=== PATIENT | female | born 1955 | race Caucasian/White ===

== ENCOUNTER → 2019-11-22 09:49 | Outpatient (CLI) | payer MEDICARE, SELFPAY ==
[2019-11-22 10:32] LABS: Add Manual Diff / Slide Review NO; Basophils Absolute Auto 100 /uL (0-100); Basophils Percent Auto 1.4 % (0-2); Eosinophils Absolute Auto 500 /uL (0-450); Eosinophils Percent Auto 7.1 % (2-4); Hematocrit 40.3 % (36-46); Hemoglobin 13.6 g/dL (12.0-16.0); Lymphocytes Absolute Auto 1600 /uL (1100-4500); Lymphocytes Percent Auto 22.1 % (25-40); Mean Corpuscular HGB Conc 33.7 % (30-36); Mean Corpuscular Hemoglobin 30.7 PG (26-34); Mean Corpuscular Volume 91.1 fL (80-100); Monocytes Absolute Auto 500 /uL (0-900); Monocytes Percent Auto 6.7 % (3-14); Neutrophils Absolute Auto 4600 /uL (1500-7000); Neutrophils Percent Auto 62.7 % (50-75); Platelet Count 272 X10^3/uL (150-400); Red Blood Cell Count 4.43 X10^6/uL (4.0-5.2); Red Cell Distribution Width 13.7 % (11.6-14.8); White Blood Cell Count 7.4 X10^3/uL (4.5-11.0)
[2019-11-22 10:47] LABS: Lithium 0.6 mmol/L (0.6-1.2)
[2019-11-22 10:48] LABS: Alanine Aminotransferase 18 IU/L (<35); Albumin 4.2 g/dL (3.5-5.0); Albumin Globulin Ratio 1.4 (1.0-2.8); Alkaline Phosphatase 101 U/L (38-126); Aspartate Aminotransferase 22 IU/L (14-36); BUN Creatinine Ratio 17.7 (6-22); Bilirubin Total 0.6 mg/dL (0.2-1.3); Blood Urea Nitrogen 14 mg/dL (7-17); Calcium 10.6 mg/dL (8.4-10.2); Carbon Dioxide 26 mmol/L (22-32); Chloride 109 mmol/L (98-107); Cholesterol 194 mg/dL (140-199); Estimated Glomerular Filt Rate > 60.0 mL/min (>60); Globulin 2.9 g/dL (1.7-4.1); Glucose 99 mg/dL (80-110); HDL Cholesterol 41 mg/dL (40-60); HEMOLYSIS < 15 (0-50); LDL Cholesterol Calculated 100 mg/dL (<100); Potassium 4.8 mmol/L (3.4-5.1); Sodium 140 mmol/L (137-145); Total Protein 7.1 g/dL (6.3-8.2); Triglycerides 264 mg/dL (35-150)
[2019-11-22 11:04] LABS: Free T3, Triiodothyronine Free 2.86 pg/mL (2.77-5.27); Free T4, Direct Thyroxine 1.01 ng/dL (0.78-2.19)
== END ==
PROVIDERS: Family Provider Family Medicine; PCP Nurse Practitioner; Referring Provider Nurse Practitioner; Visit Provider Nurse Practitioner
DX: Z00.00 Encounter for general adult medical examination without abnormal findings (principal); E03.9 Hypothyroidism, unspecified; R42 Dizziness and giddiness; Z79.899 Other long term (current) drug therapy
CPT/HCPCS: 36415; 80053; 80061; 80178; 84439; 84443; 84481; 85025

== ENCOUNTER → 2020-07-10 16:37 | Outpatient (CLI) | payer MEDICARE, SELFPAY ==
[2020-07-10 17:51] LABS: Appearance Urine UA CLEAR; Bilirubin Urine UA NEGATIVE (NEGATIVE); Color Urine UA YELLOW; Glucose Urine UA NEGATIVE (Negative); Ketones Urine UA NEGATIVE (NEGATIVE); Leukocyte Esterase Urine UA NEGATIVE (NEGATIVE); Nitrite Urine UA NEGATIVE (Negative); Occult Blood Urine UA TRACE-LYSED (Negative); Protein Urine UA NEGATIVE (Negative); Urobilinogen Urine UA 0.2 E.U./dL (0.2)
[2020-07-10 18:41] LABS: Add Manual Diff / Slide Review NO; Basophils Absolute Auto 100 /uL (0-100); Eosinophils Absolute Auto 600 /uL (0-450); Eosinophils Percent Auto 7.9 % (2-4); Hematocrit 40.2 % (36-46); Hemoglobin 13.3 g/dL (12.0-16.0); Lymphocytes Absolute Auto 2200 /uL (1100-4500); Lymphocytes Percent Auto 27.4 % (25-40); Mean Corpuscular Hemoglobin 29.7 PG (26-34); Mean Corpuscular Volume 89.9 fL (80-100); Monocytes Absolute Auto 600 /uL (0-900); Monocytes Percent Auto 7.8 % (3-14); Neutrophils Absolute Auto 4500 /uL (1500-7000); Neutrophils Percent Auto 55.9 % (50-75); Platelet Count 294 X10^3/uL (150-400); Red Blood Cell Count 4.47 X10^6/uL (4.0-5.2); Red Cell Distribution Width 13.5 % (11.6-14.8); White Blood Cell Count 8.1 X10^3/uL (4.5-11.0)
[2020-07-10 19:04] LABS: Alanine Aminotransferase 31 IU/L (<35); Albumin 4.2 g/dL (3.5-5.0); Albumin Globulin Ratio 1.6 (1.0-2.8); Alkaline Phosphatase 100 U/L (38-126); Aspartate Aminotransferase 28 IU/L (14-36); BUN Creatinine Ratio 20.5 (6-22); Bilirubin Total 0.3 mg/dL (0.2-1.3); Blood Urea Nitrogen 16 mg/dL (7-17); Calcium 10.2 mg/dL (8.4-10.2); Carbon Dioxide 27 mmol/L (22-32); Chloride 108 mmol/L (98-107); Estimated Glomerular Filt Rate > 60.0 mL/min (>60); Globulin 2.7 g/dL (1.7-4.1); Glucose 88 mg/dL (80-110); HEMOLYSIS < 15 (0-50); Lipase 80 U/L (23-300); Potassium 4.4 mmol/L (3.4-5.1); Sodium 140 mmol/L (137-145); Total Protein 6.9 g/dL (6.3-8.2)
== END ==
PROVIDERS: Family Provider Family Medicine; PCP Registered Nurse; Referring Provider Registered Nurse; Visit Provider Registered Nurse
DX: R10.9 Unspecified abdominal pain (principal); R53.83 Other fatigue; M54.5 Low back pain
CPT/HCPCS: 36415; 80053; 81003; 83690; 85025

== ENCOUNTER → 2020-07-24 11:18 | Outpatient (CLI) | payer MEDICARE, SELFPAY ==
--- NOTE | 2020-07-24 12:38 | DI.CT.S_ITS ---
PROCEDURE: CT ABDOMEN W CON INDICATIONS: abdominal pain TECHNIQUE: After the administration of oral and intravenous contrast, 5 mm thick sections acquired from the diaphragms to the iliac crests. 5 mm thick coronal and sagittal reformats were acquired. For radiation dose reduction, the following was used: automated exposure control, adjustment of mA and/or kV according to patient size. COMPARISON: [facility], [place], ABDOMEN COMPLETE, 10/14/2011, 8:48. [facility], [place], ABDOMEN/PELVIS WITH CONTRAST, 09/18/2011, 8:56. FINDINGS: Image quality: Excellent. Lung bases: Lingular scars and atelectasis. Heart size is mildly increased. Solid organs: Hepatic steatosis. Liver is normal in size and enhancement. Gallbladder is surgically absent. Common bile duct is prominent measuring 8 mm. There is mild intrahepatic biliary dilation. Pancreas enhances normally. Spleen is normal in size. There is a 1.4 x 1.8 cm they low-density mass in spleen. Previously, it measures 3.1 x 3.2 cm on 09/18/2011. No adrenal nodules. Kidneys are normal in size, without hydronephrosis. Peritoneum and bowel: Contrast enhanced bowel loops appear normal in caliber. No free fluid or air. Nodes and vessels: No retroperitoneal or mesenteric adenopathy by size criteria. Aorta and inferior vena cava are normal in size. Bones: No suspicious bony lesions. No vertebral body compression fractures. Moderate degenerative disease at L3-L4. Miscellaneous: There is a tiny fat containing umbilical hernia. Fatty replacement of the right rectus abdominis muscle. IMPRESSION: 1. A tiny fat containing umbilical hernia. 2. Mild intrahepatic and extrahepatic biliary dilation may be sequelae of cholecystectomy. 3. Hepatic steatosis. 4. A 1.4 x 1.8 cm low-density mass in spleen, decreased in size compared to 09/18/2011. It is most likely a hemangioma. The difference in measurement between the current scan and the last exam may be due to variation in timing of contrast enhancement. Dictated by: Damian Griffin M.D. on 07/24/2020 at 15:15 Approved by: Damian Griffin M.D. on 07/24/2020 at 15:25
== END ==
PROVIDERS: Family Provider Family Medicine; PCP Nurse Practitioner; Referring Provider Nurse Practitioner; Visit Provider Registered Nurse
DX: R10.9 Unspecified abdominal pain (principal); K76.0 Fatty (change of) liver, not elsewhere classified; R16.1 Splenomegaly, not elsewhere classified
CPT/HCPCS: 74160; Q9967

== ENCOUNTER → 2020-11-28 09:50 | Outpatient (CLI) | payer MEDICARE, SELFPAY ==
[2020-11-28 10:51] LABS: Alanine Aminotransferase 23 IU/L (<35); Albumin Globulin Ratio 1.2 (1.0-2.8); Alkaline Phosphatase 99 U/L (38-126); Aspartate Aminotransferase 27 IU/L (14-36); Bilirubin Total 0.4 mg/dL (0.2-1.3); Blood Urea Nitrogen 15 mg/dL (7-17); Calcium 10.2 mg/dL (8.4-10.2); Carbon Dioxide 24 mmol/L (22-32); Chloride 111 mmol/L (98-107); Estimated Glomerular Filt Rate > 60.0 mL/min (>60); Globulin 3.3 g/dL (1.7-4.1); Glucose 103 mg/dL (80-110); HEMOLYSIS < 15 (0-50); Potassium 4.8 mmol/L (3.4-5.1); Sodium 140 mmol/L (137-145); Total Protein 7.3 g/dL (6.3-8.2)
[2020-11-28 10:56] LABS: Lithium 0.9 mmol/L (0.6-1.2)
[2020-11-28 11:23] LABS: Thyroid Stimulating Hormone 0.043 uIU/mL (0.47-4.68)
== END ==
PROVIDERS: Family Provider Family Medicine; PCP Nurse Practitioner; Referring Provider Nurse Practitioner; Visit Provider Nurse Practitioner
DX: E03.8 Other specified hypothyroidism (principal); E06.3 Autoimmune thyroiditis; Z79.899 Other long term (current) drug therapy
CPT/HCPCS: 36415; 80053; 80178; 84443

== ENCOUNTER → 2021-05-17 09:48 | Outpatient (CLI) | payer MEDICARE, SELFPAY ==
[2021-05-17 13:30] LABS: Free T3, Triiodothyronine Free 3.35 pg/mL (2.77-5.27); Free T4, Direct Thyroxine 1.12 ng/dL (0.78-2.19)
[2021-05-17 13:44] LABS: Thyroid Stimulating Hormone 0.152 uIU/mL (0.47-4.68)
== END ==
PROVIDERS: Family Provider Family Medicine; PCP Nurse Practitioner; Referring Provider Nurse Practitioner; Visit Provider Nurse Practitioner
DX: M85.88 Other specified disorders of bone density and structure, other site (principal); Z78.0 Asymptomatic menopausal state; E06.3 Autoimmune thyroiditis; E03.8 Other specified hypothyroidism
CPT/HCPCS: 36415; 77080; 84439; 84443; 84481

== ENCOUNTER → 2021-07-18 08:22 | Outpatient (CLI) | payer MEDICARE, SELFPAY ==
[2021-07-18 10:19] LABS: Add Manual Diff / Slide Review NO; Basophils Absolute Auto 100 /uL (0-100); Basophils Percent Auto 0.9 % (0-2); Eosinophils Absolute Auto 500 /uL (0-450); Eosinophils Percent Auto 8.1 % (2-4); Hematocrit 40.6 % (36-46); Hemoglobin 13.5 g/dL (12.0-16.0); Lymphocytes Absolute Auto 1600 /uL (1100-4500); Lymphocytes Percent Auto 23.8 % (25-40); Mean Corpuscular HGB Conc 33.1 % (30-36); Mean Corpuscular Hemoglobin 30.1 PG (26-34); Mean Corpuscular Volume 90.9 fL (80-100); Monocytes Absolute Auto 300 /uL (0-900); Neutrophils Absolute Auto 4200 /uL (1500-7000); Neutrophils Percent Auto 62.2 % (50-75); Platelet Count 279 X10^3/uL (150-400); Red Blood Cell Count 4.47 X10^6/uL (4.0-5.2); Red Cell Distribution Width 14.3 % (11.6-14.8); White Blood Cell Count 6.8 X10^3/uL (4.5-11.0)
[2021-07-18 10:39] LABS: Lithium 0.5 mmol/L (0.6-1.2)
[2021-07-18 10:42] LABS: Alanine Aminotransferase 21 IU/L (<35); Albumin Globulin Ratio 1.2 (1.0-2.8); Alkaline Phosphatase 79 U/L (38-126); Aspartate Aminotransferase 25 IU/L (14-36); BUN Creatinine Ratio 22.1 (6-22); Bilirubin Total 0.4 mg/dL (0.2-1.3); Blood Urea Nitrogen 19 mg/dL (7-17); Calcium 10.1 mg/dL (8.4-10.2); Carbon Dioxide 30 mmol/L (22-32); Chloride 108 mmol/L (98-107); Cholesterol 211 mg/dL (140-199); Estimated Glomerular Filt Rate > 60.0 mL/min (>60); Globulin 3.3 g/dL (1.7-4.1); Glucose 101 mg/dL (80-110); HDL Cholesterol 40 mg/dL (40-60); HEMOLYSIS < 15 (0-50); LDL Cholesterol Calculated 134 mg/dL (<100); Potassium 4.8 mmol/L (3.4-5.1); Sodium 138 mmol/L (137-145); Total Protein 7.3 g/dL (6.3-8.2); Triglycerides 186 mg/dL (35-150)
[2021-07-18 10:59] LABS: Free T3, Triiodothyronine Free 2.74 pg/mL (2.77-5.27); Free T4, Direct Thyroxine 1.09 ng/dL (0.78-2.19)
[2021-07-18 11:12] LABS: Thyroid Stimulating Hormone 1.66 uIU/mL (0.47-4.68)
[2021-07-19 06:23] LABS: Thyroid Peroxidase Antibodies <8 IU/mL (0-34)
== END ==
PROVIDERS: Family Provider Family Medicine; PCP Nurse Practitioner; Referring Provider Nurse Practitioner; Visit Provider Nurse Practitioner
DX: E03.8 Other specified hypothyroidism (principal); E78.2 Mixed hyperlipidemia; Z79.899 Other long term (current) drug therapy; F31.2 Bipolar disorder, current episode manic severe with psychotic features; E06.3 Autoimmune thyroiditis; R53.83 Other fatigue; L65.9 Nonscarring hair loss, unspecified; Z13.6 Encounter for screening for cardiovascular disorders
CPT/HCPCS: 36415; 80053; 80061; 80178; 84439; 84443; 84481; 85025; 86376

== ENCOUNTER → 2021-10-18 11:49 | Outpatient (CLI) | payer MEDICARE, SELFPAY ==
[2021-10-18 13:00] LABS: Lithium 1.2 mmol/L (0.6-1.2)
[2021-10-18 13:37] LABS: Thyroid Stimulating Hormone 1.23 uIU/mL (0.47-4.68)
== END ==
PROVIDERS: Family Provider Family Medicine; PCP Nurse Practitioner; Referring Provider Nurse Practitioner; Visit Provider Nurse Practitioner
DX: E03.9 Hypothyroidism, unspecified (principal); E03.8 Other specified hypothyroidism; E06.3 Autoimmune thyroiditis; Z79.899 Other long term (current) drug therapy
CPT/HCPCS: 36415; 80178; 84443

== ENCOUNTER 2022-03-24 14:43 | Emergency (ER) | payer MEDICARE, SELFPAY ==
[2022-03-24 14:56] VITALS: BP 139/63; PULSE 55; RESP 18; TEMP 36.7; O2SAT 100
== END 2022-03-24 17:03 | disposition left against medical advice (07) ==
PROVIDERS: Emergency Provider Student in an Organized Health Care Education/Training Program; Family Provider Family Medicine; PCP Nurse Practitioner
DX: S61.217A Laceration without foreign body of left little finger without damage to nail, initial encounter (principal); W54.0XXA Bitten by dog, initial encounter
CPT/HCPCS: 99281

== ENCOUNTER → 2022-04-11 07:27 | Outpatient (CLI) | payer MEDICARE, SELFPAY ==
--- NOTE | 2022-04-11 07:30 | DI.MG.S_ITS ---
BILATERAL DIGITAL SCREENING MAMMOGRAM 3D/2D WITH CAD: 04/11/2022 CLINICAL: Routine screening. Comparison is made to exams dated: 06/07/2009 mammogram, 08/19/2007 mammogram, and 07/13/2006 mammogram - [facility]. Both breasts are almost entirely fatty (category a/<25% glandular tissue). Current study was also evaluated with a Computer Aided Detection (CAD) system. No significant masses, calcifications, or other findings are seen in either breast. There has been no significant interval change. IMPRESSION: NEGATIVE There is no mammographic evidence of malignancy. A 1 year screening mammogram is recommended. Based on the Tyrer Cuzick model (a risk assessment model) the patient's lifetime risk is 4.4% and her 10 year risk is 2.3%. According to the ACR, ACS, and NCCN guidelines, an annual breast MRI exam along with mammogram is recommended if the patient's lifetime risk is 20% or greater. This exam was interpreted at Station ID: [id number]. NOTE: For mammograms, a report in lay terms will be sent to the patient. Approximately 15% of breast malignancies will not be visualized mammographically. In the management of a palpable breast mass, a negative mammogram must not discourage biopsy of a clinically suspicious lesion. Electronically Signed By: Elina ingram/tasha:04/11/2022 13:10:05 letter sent: Normal Exam ACR BI-RADS Category 1: Negative [id number]
[2022-04-11 10:25] LABS: Hemoglobin A1C% w Est Avg Glu 5.4 % (4.0-6.0)
[2022-04-11 10:52] LABS: Lithium 0.9 mmol/L (0.6-1.2)
[2022-04-11 11:01] LABS: BUN Creatinine Ratio 20.4 (6-22); Blood Urea Nitrogen 19 mg/dL (7-17); Calcium 9.8 mg/dL (8.4-10.2); Carbon Dioxide 23 mmol/L (22-32); Chloride 107 mmol/L (98-107); Estimated Glomerular Filt Rate > 60 mL/min (>60); Glucose 84 mg/dL (80-110); HEMOLYSIS < 15 (0-50); Potassium 4.8 mmol/L (3.4-5.1); Sodium 139 mmol/L (137-145)
[2022-04-11 11:43] LABS: Free T4, Direct Thyroxine 0.81 ng/dL (0.78-2.19)
[2022-04-12 19:36] LABS: SS A Ro Sjogrens Antibody < 0.2 AI (0.0-0.9); SS B La Sjogrens Antibody < 0.2 AI (0.0-0.9)
== END ==
PROVIDERS: Family Provider Family Medicine; PCP Family Medicine; Referring Provider Family Medicine; Visit Provider Family Medicine
DX: Z12.31 Encounter for screening mammogram for malignant neoplasm of breast (principal); E03.8 Other specified hypothyroidism; E06.3 Autoimmune thyroiditis; F31.81 Bipolar II disorder; H93.13 Tinnitus, bilateral; R42 Dizziness and giddiness; R68.2 Dry mouth, unspecified
CPT/HCPCS: 36415; 77063; 77067; 80048; 80178; 83036; 84439; 84443; 86235

== ENCOUNTER 2022-05-23 10:26 | Emergency (ER) | payer MEDICARE, SELFPAY ==
[2022-05-23 10:41] VITALS: BP 134/70; PULSE 70; RESP 14; TEMP 36.2; O2SAT 98; BMI 32.5
[2022-05-23 11:16] LABS: Add Manual Diff / Slide Review NO; Basophils Absolute Auto 100 /uL (0-100); Basophils Percent Auto 0.7 % (0-2); Eosinophils Absolute Auto 700 /uL (0-450); Eosinophils Percent Auto 6.4 % (2-4); Hematocrit 40.5 % (36-46); Hemoglobin 13.7 g/dL (12.0-16.0); Lymphocytes Absolute Auto 2100 /uL (1100-4500); Lymphocytes Percent Auto 19.5 % (25-40); Mean Corpuscular HGB Conc 33.8 % (30-36); Mean Corpuscular Hemoglobin 30.9 PG (26-34); Mean Corpuscular Volume 91.5 fL (80-100); Monocytes Absolute Auto 700 /uL (0-900); Monocytes Percent Auto 6.1 % (3-14); Neutrophils Absolute Auto 7400 /uL (1500-7000); Neutrophils Percent Auto 67.3 % (50-75); Platelet Count 205 X10^3/uL (150-400); Red Blood Cell Count 4.43 X10^6/uL (4.0-5.2); Red Cell Distribution Width 13.7 % (11.6-14.8); White Blood Cell Count 10.9 X10^3/uL (4.5-11.0)
[2022-05-23 11:28] LABS: Lithium 0.7 mmol/L (0.6-1.2)
--- NOTE | 2022-05-23 11:28 | DI.CT.S_ITS ---
PROCEDURE: CT HEAD/BRAIN WO CON INDICATIONS: confusion TECHNIQUE: Noncontrast 4.5 mm thick angled axial sections acquired from the foramen magnum to the vertex, with coronal and sagittal reformats. For radiation dose reduction, the following was used: automated exposure control, adjustment of mA and/or kV according to patient size. COMPARISON: None. FINDINGS: Image quality: Excellent. CSF spaces: Basal cisterns are patent. No extra-axial fluid collections. Ventricles are normal in size and shape. Brain: No midline shift. No intracranial masses or hemorrhage. Becerra-white matter interface is normal. Skull and face: Calvarium and visualized facial bones are intact, without suspicious lesions. Sinuses: Visualized sinuses demonstrate mild right maxillary mucous retention cyst versus polyp. Mild right frontal sinus mucosal thickening is present. IMPRESSION: 1. No acute intracranial process. Dictated by: Ivana Hyatt M.D. on 05/23/2022 at 12:17 Approved by: Ivana Hyatt M.D. on 05/23/2022 at 12:18
[2022-05-23 11:31] LABS: Acetaminophen < 10 ug/mL (10-30); Alanine Aminotransferase 26 IU/L (<35); Albumin 4.2 g/dL (3.5-5.0); Albumin Globulin Ratio 1.2 (1.0-2.8); Alkaline Phosphatase 71 U/L (38-126); Aspartate Aminotransferase 32 IU/L (14-36); BUN Creatinine Ratio 22.7 (6-22); Bilirubin Total 0.5 mg/dL (0.2-1.3); Blood Urea Nitrogen 17 mg/dL (7-17); Carbon Dioxide 19 mmol/L (22-32); Chloride 111 mmol/L (98-107); Estimated Glomerular Filt Rate > 60 mL/min (>60); Ethanol (ETOH) < 10 mg/dL; Globulin 3.6 g/dL (1.7-4.1); Glucose 103 mg/dL (80-110); Salicylate < 1.0 mg/dL (<20); Sodium 139 mmol/L (137-145); Total Protein 7.8 g/dL (6.3-8.2)
[2022-05-23 11:32] LABS: HEMOLYSIS 72 (0-50)
[2022-05-23 11:47] LABS: Free T4, Direct Thyroxine 1.54 ng/dL (0.78-2.19)
[2022-05-23 12:01] LABS: Thyroid Stimulating Hormone 0.932 uIU/mL (0.47-4.68)
[2022-05-23 12:11] VITALS: PULSE 47; O2SAT 99
[2022-05-23 12:12] VITALS: BP 138/76; PULSE 47; O2SAT 98
[2022-05-23 12:13] VITALS: BP 138/76; PULSE 54; RESP 19; O2SAT 97
[2022-05-23 12:32] LABS: Lactate (Lactic Acid) 0.7 mmol/L (0.7-2.1)
[2022-05-23 12:41] LABS: Procalcitonin 0.07 ng/mL (<0.5)
[2022-05-23 13:26] LABS: UR Morphine/Opiate cutoff 300 Negative (Negative); Ur Creatinine Normal (Normal); Ur Specific Gravity Normal (Normal); Urine Amphetamines Negative (Negative); Urine Cocaine Negative (Negative); Urine Methamphetamines Negative (Negative); Urine Phencyclidine Negative (Negative); Urine Tetrahydrocannabinol Negative (Negative); Urine pH Normal (Normal)
[2022-05-23 13:27] LABS: Urine Barbiturates Negative (Negative); Urine Benzodiazepines Negative (Negative); Urine MDMA Negative (Negative); Urine Methadone Negative (Negative); Urine Oxycodone Negative (Negative); Urine Tricyclic Antidepressant Negative (Negative)
[2022-05-23 13:33] LABS: Influenza A - CEPHEID Flu A NEGATIVE (NEGATIVE); Influenza B - CEPHEID Flu B NEGATIVE (NEGATIVE); Respiratory Syncytial Virus Negative (Negative)
--- NOTE | 2022-05-23 13:46 | ED_ITS ---
HPI - Psych General Chief Complaint: Psychiatric Symptoms Stated Complaint: sent by /Cipriano Time Seen by Provider: 05/23/22 11:27 Source: patient Mode of arrival: Ambulatory History of Present Illness HPI Narrative: Patient is a 66-year-old female history of bipolar and hypothyroid presenting today with increased cipriano. 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 People with her and noticed that she was a little bit off. She reports that she only CT now she is not sleeping very much. She is distracted by things. She denies any suicidal or homicidal ideations. It was noted by her PCP about 1 month ago was 13. She was started on levothyroxine 137 mcg. He denies any fever or chills. She is here with a friend who gives quite a good history. Patient is a little bit confused difficult to follow. She reports that she is able to eat drinking get herself dressed and bathes every day. Related Data Previous Rx's Medication Instructions Recorded lithium carbonate 300 mg capsule See Rx Instructions .Route 03/12/22 .COMPLEX #180 caps levothyroxine 137 mcg tablet 137 mcg PO DAILY #30 tabs 04/23/22 Allergies Allergy/AdvReac Type Severity Reaction Status Date / Time No Known Drug Allergies Allergy Unverified 04/23/22 10:46 Review of Systems Review of Systems ROS Unobtainable: All systems reviewed & are unremarkable except as noted in HPI and below Patient History Medical History Bipolar 1 disorder Bipolar 2 disorder Colon cancer screening declined Enlarged heart Hearing loss Hepatic steatosis History of bipolar disorder (~1976) Hypothyroidism (~1984) [place] use Mammogram declined Near sighted Osteoporosis screening declined Other roasterman (current) drug therapy Psoriasis Tinnitus Surgical History Anesthesia History of cholecystectomy (~1984) Status post surgery (03/26/09) Family History Father Asbestosis Mother History of heart disease Brother Cancer Grandmother History of heart disease Grandfather History of heart disease Grandmother Mental health problem Social History Smoking Status: Former smoker Smoking Status: Former smoker alcohol intake frequency: 3 or more drinks per day Substance Use Type: does not use Exam Initial Vital Signs Initial Vital Signs: Vital Signs Temperature 97.1 F L 05/23/22 10:41 Pulse Rate 70 05/23/22 10:41 Respiratory Rate 14 05/23/22 10:41 Blood Pressure 134/70 05/23/22 10:41 Pulse Oximetry 98 05/23/22 10:41 Oxygen Delivery Method 05/23/22 10:41 GENERAL: Alert well-appearing 66-year-old female CARDIOVASCULAR: peripheral pulses in tact, cap refill <2 sec RESPIRATORY: No respiratory distress, speaks in full sentences without difficulty EXTREMITIES: Normal range of motion, no clubbing or edema. Neurovascularly intact NEUROLOGICAL: Cranial nerves II through XII grossly intact. Normal gait and speech. SKIN: Warm, dry, no petechiae, no rashes or lesions. Psych Appearance: grossly normal Mental Status: mental status grossly normal Mood: euphoric mood and manic mood Affect: euphoric affect Attitude: cooperative Thought Process: flight of ideas Thought Content: compulsions Judgment: judgment good Course Orders Ordered: ED Orders 05/23/22 10:54 Acetaminophen Stat Complete Blood Count AUTO DIFF Stat Comprehensive Metabolic Panel Stat Ethanol (ETOH) Stat Free T4, Direct Thyroxine Stat [place] Stat Salicylate Stat Thyroid Stimulating Hormone Stat 05/23/22 11:28 CT head/brain wo con Stat 05/23/22 11:48 Lactate (Lactic Acid) Stat Procalcitonin Stat 05/23/22 12:00 Covid-19 + FLU A/B + RSV - PCR Stat 05/23/22 12:10 Urine Drug Screen, Rapid Stat 05/23/22 13:55 Consult to [facility] - [employer] Stat Discontinued Medications Olanzapine (Olanzapine Odt 10 Mg Tab) 10 mg PO NOW ONE Stop: 05/23/22 14:20 Last Admin: 05/23/22 14:26 Dose: 10 mg Documented By: BRITTANY Vital Signs Vital signs: Vital Signs - 8 hr 05/23/22 10:41 05/23/22 12:13 05/23/22 12:11 Temperature 97.1 F L Pulse Rate 70 54 L 47 L Respiratory Rate 14 19 Blood Pressure 134/70 138/76 Pulse Oximetry 98 97 99 Oxygen Delivery Method Room Air Room Air 05/23/22 12:12 05/23/22 12:12 05/23/22 14:35 Temperature Pulse Rate 47 L 58 L Respiratory Rate Blood Pressure 138/76 118/63 Pulse Oximetry 98 97 Oxygen Delivery Method Room Air Room Air MDM - Psych Lab Data Result diagrams: 05/23/22 10:54 05/23/22 10:54 Labs: Lab Results 05/23/22 05/23/22 05/23/22 Range/Units 10:54 10:54 10:54 WBC 10.9 (4.5-11.0) X10^3/uL RBC 4.43 (4.0-5.2) X10^6/uL Hgb 13.7 (12.0-16.0) g/dL Hct 40.5 (36-46) % MCV 91.5 (80-100) fL MCH 30.9 (26-34) PG MCHC 33.8 (30-36) % RDW 13.7 (11.6-14.8) % Plt Count 205 (150-400) X10^3/uL Neut % (Auto) 67.3 (50-75) % Lymph % (Auto) 19.5 L (25-40) % [place] % (Auto) 6.1 (3-14) % Eos % (Auto) 6.4 H (2-4) % Baso % (Auto) 0.7 (0-2) % Neut # (Auto) 7400 H (8616-6431) /uL Lymph # (Auto) 2100 (0671-7727) /uL [place] # (Auto) 700 (0-900) /uL Eos # (Auto) 700 H (0-450) /uL Baso # (Auto) 100 (0-100) /uL Sodium 139 (137-145) mmol/L Potassium 5.0 (3.4-5.1) mmol/L Chloride 111 H (98-107) mmol/L Carbon Dioxide 19 L (22-32) mmol/L BUN 17 (7-17) mg/dL Creatinine 0.75 (0.52-1.04) mg/dL Estimated GFR > 60 (>60) mL/min BUN/Creatinine Ratio 22.7 H (6-22) Glucose 103 (80-110) mg/dL Lactate (0.7-2.1) mmol/L Calcium 10.0 (8.4-10.2) mg/dL Total Bilirubin 0.5 (0.2-1.3) mg/dL AST 32 (14-36) IU/L ALT 26 (<35) IU/L Alkaline Phosphatase 71 (38-126) U/L Total Protein 7.8 (6.3-8.2) g/dL Albumin 4.2 (3.5-5.0) g/dL Globulin 3.6 (1.7-4.1) g/dL Albumin/Globulin Ratio 1.2 (1.0-2.8) Procalcitonin (<0.5) ng/mL TSH 0.932 (0.47-4.68) uIU/mL Free T4 1.54 (0.78-2.19) ng/dL Salicylates < 1.0 (<20) mg/dL U Opiates 300ng/mL cut (Negative) Ur Oxycodone Screen (Negative) Urine Methadone Screen (Negative) Acetaminophen < 10 (10-30) ug/mL Ur Barbiturates Screen (Negative) U Tricyclic Antidepress (Negative) Ur Phencyclidine Scrn (Negative) Ur Amphetamines Screen (Negative) U Methamphetamines Scrn (Negative) Ur MDMA Scrn (Ecstasy) (Negative) U Benzodiazepines Scrn (Negative) [place] 0.7 (0.6-1.2) mmol/L Urine Cocaine Screen (Negative) U Marijuana (THC) Screen (Negative) Ethyl Alcohol < 10 ( - 10) mg/dL SARS-CoV-2 (PCR) (Negative) Influenza A (RT-PCR) (NEGATIVE) Influenza B (RT-PCR) (NEGATIVE) RSV (PCR) (Negative) 05/23/22 05/23/22 05/23/22 Range/Units 11:48 11:48 12:00 WBC (4.5-11.0) X10^3/uL RBC (4.0-5.2) X10^6/uL Hgb (12.0-16.0) g/dL Hct (36-46) % MCV (80-100) fL MCH (26-34) PG MCHC (30-36) % RDW (11.6-14.8) % Plt Count (150-400) X10^3/uL Neut % (Auto) (50-75) % Lymph % (Auto) (25-40) % [place] % (Auto) (3-14) % Eos % (Auto) (2-4) % Baso % (Auto) (0-2) % Neut # (Auto) (3779-5272) /uL Lymph # (Auto) (6200-9967) /uL [place] # (Auto) (0-900) /uL Eos # (Auto) (0-450) /uL Baso # (Auto) (0-100) /uL Sodium (137-145) mmol/L Potassium (3.4-5.1) mmol/L Chloride (98-107) mmol/L Carbon Dioxide (22-32) mmol/L BUN (7-17) mg/dL Creatinine (0.52-1.04) mg/dL Estimated GFR (>60) mL/min BUN/Creatinine Ratio (6-22) Glucose (80-110) mg/dL Lactate 0.7 (0.7-2.1) mmol/L Calcium (8.4-10.2) mg/dL Total Bilirubin (0.2-1.3) mg/dL AST (14-36) IU/L ALT (<35) IU/L Alkaline Phosphatase (38-126) U/L Total Protein (6.3-8.2) g/dL Albumin (3.5-5.0) g/dL Globulin (1.7-4.1) g/dL Albumin/Globulin Ratio (1.0-2.8) Procalcitonin 0.07 (<0.5) ng/mL TSH (0.47-4.68) uIU/mL Free T4 (0.78-2.19) ng/dL Salicylates (<20) mg/dL U Opiates 300ng/mL cut (Negative) Ur Oxycodone Screen (Negative) Urine Methadone Screen (Negative) Acetaminophen (10-30) ug/mL Ur Barbiturates Screen (Negative) U Tricyclic Antidepress (Negative) Ur Phencyclidine Scrn (Negative) Ur Amphetamines Screen (Negative) U Methamphetamines Scrn (Negative) Ur MDMA Scrn (Ecstasy) (Negative) U Benzodiazepines Scrn (Negative) [place] (0.6-1.2) mmol/L Urine Cocaine Screen (Negative) U Marijuana (THC) Screen (Negative) Ethyl Alcohol ( - 10) mg/dL SARS-CoV-2 (PCR) Negative (Negative) Influenza A (RT-PCR) Flu a negative (NEGATIVE) Influenza B (RT-PCR) Flu b negative (NEGATIVE) RSV (PCR) Negative (Negative) 05/23/22 Range/Units 12:10 WBC (4.5-11.0) X10^3/uL RBC (4.0-5.2) X10^6/uL Hgb (12.0-16.0) g/dL Hct (36-46) % MCV (80-100) fL MCH (26-34) PG MCHC (30-36) % RDW (11.6-14.8) % Plt Count (150-400) X10^3/uL Neut % (Auto) (50-75) % Lymph % (Auto) (25-40) % [place] % (Auto) (3-14) % Eos % (Auto) (2-4) % Baso % (Auto) (0-2) % Neut # (Auto) (4845-7575) /uL Lymph # (Auto) (7149-7901) /uL [place] # (Auto) (0-900) /uL Eos # (Auto) (0-450) /uL Baso # (Auto) (0-100) /uL Sodium (137-145) mmol/L Potassium (3.4-5.1) mmol/L Chloride (98-107) mmol/L Carbon Dioxide (22-32) mmol/L BUN (7-17) mg/dL Creatinine (0.52-1.04) mg/dL Estimated GFR (>60) mL/min BUN/Creatinine Ratio (6-22) Glucose (80-110) mg/dL Lactate (0.7-2.1) mmol/L Calcium (8.4-10.2) mg/dL Total Bilirubin (0.2-1.3) mg/dL AST (14-36) IU/L ALT (<35) IU/L Alkaline Phosphatase (38-126) U/L Total Protein (6.3-8.2) g/dL Albumin (3.5-5.0) g/dL Globulin (1.7-4.1) g/dL Albumin/Globulin Ratio (1.0-2.8) Procalcitonin (<0.5) ng/mL TSH (0.47-4.68) uIU/mL Free T4 (0.78-2.19) ng/dL Salicylates (<20) mg/dL U Opiates 300ng/mL cut Negative (Negative) Ur Oxycodone Screen Negative (Negative) Urine Methadone Screen Negative (Negative) Acetaminophen (10-30) ug/mL Ur Barbiturates Screen Negative (Negative) U Tricyclic Antidepress Negative (Negative) Ur Phencyclidine Scrn Negative (Negative) Ur Amphetamines Screen Negative (Negative) U Methamphetamines Scrn Negative (Negative) Ur MDMA Scrn (Ecstasy) Negative (Negative) U Benzodiazepines Scrn Negative (Negative) [place] (0.6-1.2) mmol/L Urine Cocaine Screen Negative (Negative) U Marijuana (THC) Screen Negative (Negative) Ethyl Alcohol ( - 10) mg/dL SARS-CoV-2 (PCR) (Negative) Influenza A (RT-PCR) (NEGATIVE) Influenza B (RT-PCR) (NEGATIVE) RSV (PCR) (Negative) Urine Dip Bedside Urine Glucose Negative Bedside Urine Bilirubin - Negative Bedside Urine Ketone - Negative Urine Specific [place] 1.015 Bedside Urine Occult Blood - Negative Bedside Urine pH 6.0 Bedside Urine Protein - Negative Bedside Urine Urobilinogen - Negative Bedside Urine Nitrite - Negative Bedside Urine Leukocytes - Negative Esterase Imaging Data CT scan - head: Radiologist's Impression: CT Scan Report Signed Patient: Marcela Phillips MR#: [id number] : 1955 Acct:[id number] Age/Sex: 66 / F Date of Service: 05/23/22 Loc: ED Accession Number: [id number] ?? Procedure: CT head/brain wo con Ordering Provider: Ely Munoz D.O. PROCEDURE:? CT HEAD/BRAIN WO CON ? INDICATIONS:? confusion ? TECHNIQUE:? Noncontrast 4.5 mm thick angled axial sections acquired from the foramen magnum to the vertex, with coronal and sagittal reformats.? For radiation dose reduction, the following was used:? automated exposure control, adjustment of mA and/or kV according to patient size.? ? COMPARISON:? None. ? FINDINGS:? Image quality:? Excellent.? ? CSF spaces:? Basal cisterns are patent.? No extra-axial fluid collections.? Ventricles are normal in size and shape.? ? Brain:? No midline shift.? No intracranial masses or hemorrhage.? Becerra-white matter interface is normal.? ? Skull and face:? Calvarium and visualized facial bones are intact, without suspicious lesions.? ? Sinuses:? Visualized sinuses demonstrate mild right maxillary mucous retention cyst versus polyp.? Mild right frontal sinus mucosal thickening is present. ? IMPRESSION:? ? 1. No acute intracranial process. ? ? Dictated by: Ivana Hyatt M.D. on 05/23/2022 at 12:17 ? ? Approved by: Ivana Hyatt M.D. on 05/23/2022 at 12:18 ? MDM Narrative Medical decision making narrative: Patient is a 66-year-old female history of hypothyroid and bipolar presents today with increasing cipriano. He does have flight of ideas and is a little you for. However not gravely disabled she is able to eat drinking get herself dressed. When we discussed hospitalization she reports that she is been hospitalized in many hospitals throughout the state. She is been through this her whole life. She does not want hospitalization. She is being followed by her PCP who writes her lithium. We discussed how going to a hospital voluntarily might benefit her and help get her bipolar under control. However she really does not want to go. She does not meet any sort of involuntary criteria. She is not suicidal homicidal or gravely disabled. Social work has been into see and evaluate patient. Blood work is overall reassuring. TSH which was previously 13.9 is now 0.9. MDM * differential diagnosis includes but not limited to: Hypothyroid sepsis bipolar manic depression * Prior records reviewed: PCP note * My lab interpretation: He above * My imaging interpretation: Head CT negative * Clinical Decision Rules/Scores evaluated: None * Independent discussions with: Friend * Social Considerations: Lives alone * Shared Decision Making: With patient and renal social worker and friends *Disposition: see below, along with detailed discharge instructions that have been reviewed with patient as well as indications for ED re-evaluation and additional outpatient follow up Discharge Plan Departure Patient Disposition: Home Clinical Impression: Bipolar 1 disorder, manic, mild Activity Restrictions/Additional Instructions: *You have been diagnosed with bipolar, with hypothyroid *What to do: Your thyroid actually seems to be well controlled now. Your bipolar is a little out of control. We did talk about hospitalization today however you did not want to go which is okay. However you will need to see your PCP next week as scheduled below, you may need further medication for your bipolar *Continue to take medications as directed Levothyroxine 137 mcg daily *Follow up with your primary care provider May 27 at 3:30 p.m. check and at 3:15 p.m. *Return to ER if you should have increased cipriano, inability to eat or drink, thoughts of suicide [or] any new, worsening or concerning symptoms Prescriptions: No Action lithium carbonate 300 mg capsule See Rx Instructions .ROUTE .COMPLEX Qty: 180 3RF Dose Instruction: TAKE 2-3 CAPSULES BY MOUTH DAILY. HIKMA BRAND ONLY Rx Instructions: TAKE 2 CAPSULES BY MOUTH DAILY. HIKMA BRAND ONLY levothyroxine 137 mcg tablet 137 mcg PO DAILY Qty: 30 11RF Referrals: Yash Chavarria DO [Primary Care Provider] - Stand Alone Forms: Patient Portal/API
[2022-05-23 13:52] LABS: COVID-19 CEPHEID 4-PLEX PCR Negative (Negative)
--- NOTE | 2022-05-23 14:19 | CM.SWNOTE ---
ED SW Note Patient is a 66-year-old female history of bipolar and hypothyroid presenting today with increased cipriano. 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 People with her and noticed that she was a little bit off. She reports that she is not sleeping very much. SW consulted to assist with scheduling follow up. SW met pt and friend at bedside. Pt denying SI or HI at this time. Pt and friend have concerns about increased confusion and manic symptoms. Pt does not want to go inpatient psych at this time. Pt has a history of involuntary psychiatric hospitalization. Pt has supportive friends/family that are able to check on her daily. Pt requests assistance scheduling follow up with PCP Dr. Yash Chavarria. KAROLINA called [facility] and scheduled pt with a ED follow up appointment on May 27 at 3:30pm, with a check in time of 3:15pm. SW called [facility] and attempted to make referral but they reported that they can only accept referral from pt's PCP at [facility]. KAROLINA met pt and friend at bedside and provided information on follow up appointment. KAROLINA discussed with . MD will give patient zyprexa PRN to help with racing thoughts and pt will discharge home with plan to follow up with PCP. AMMY Anaya
[2022-05-23] MEDS: OLANZapine ODT 10 MG TAB PO (14:26)
[2022-05-23 14:35] VITALS: BP 118/63; PULSE 58; O2SAT 97
== END 2022-05-23 14:45 | disposition home or self-care (01) ==
PROVIDERS: Emergency Provider Emergency Medicine; Family Provider Family Medicine; PCP Family Medicine
DX: F31.11 Bipolar disorder, current episode manic without psychotic features, mild (principal); Z20.822 Contact with and (suspected) exposure to COVID-19
CPT/HCPCS: 0241U; 36415; 70450; 80053; 80178; 80305; 80320; 80329; 81003; 83605; 84145; 84439; 84443; 85025; 99284; G0480

== ENCOUNTER 2022-05-26 13:29 | Emergency (ER) | payer MEDICARE, SELFPAY ==
[2022-05-26 13:33] VITALS: BP 128/71; PULSE 64; RESP 18; TEMP 36.8; O2SAT 100; BMI 34.4
[2022-05-26 14:40] LABS: Add Manual Diff / Slide Review NO; Basophils Absolute Auto 100 /uL (0-100); Basophils Percent Auto 0.8 % (0-2); Eosinophils Absolute Auto 500 /uL (0-450); Hematocrit 38.8 % (36-46); Hemoglobin 12.9 g/dL (12.0-16.0); Lymphocytes Absolute Auto 1900 /uL (1100-4500); Lymphocytes Percent Auto 24.6 % (25-40); Mean Corpuscular HGB Conc 33.3 % (30-36); Mean Corpuscular Hemoglobin 30.5 PG (26-34); Mean Corpuscular Volume 91.5 fL (80-100); Monocytes Absolute Auto 500 /uL (0-900); Neutrophils Absolute Auto 4600 /uL (1500-7000); Neutrophils Percent Auto 60.6 % (50-75); Platelet Count 292 X10^3/uL (150-400); Red Blood Cell Count 4.23 X10^6/uL (4.0-5.2); Red Cell Distribution Width 13.8 % (11.6-14.8); White Blood Cell Count 7.6 X10^3/uL (4.5-11.0)
[2022-05-26 14:41] LABS: Lithium 0.5 mmol/L (0.6-1.2)
[2022-05-26 14:43] LABS: Acetaminophen < 10 ug/mL (10-30); Alanine Aminotransferase 27 IU/L (<35); Alkaline Phosphatase 75 U/L (38-126); Aspartate Aminotransferase 33 IU/L (14-36); BUN Creatinine Ratio 21.5 (6-22); Bilirubin Total 0.5 mg/dL (0.2-1.3); Blood Urea Nitrogen 17 mg/dL (7-17); Calcium 9.7 mg/dL (8.4-10.2); Carbon Dioxide 26 mmol/L (22-32); Chloride 109 mmol/L (98-107); Estimated Glomerular Filt Rate > 60 mL/min (>60); Ethanol (ETOH) < 10 mg/dL; Glucose 118 mg/dL (80-110); Potassium 4.1 mmol/L (3.4-5.1); Salicylate < 1.0 mg/dL (<20); Sodium 142 mmol/L (137-145); Total Protein 7.5 g/dL (6.3-8.2)
[2022-05-26 14:59] LABS: Free T4, Direct Thyroxine 1.46 ng/dL (0.78-2.19)
[2022-05-26 15:13] LABS: Thyroid Stimulating Hormone 0.506 uIU/mL (0.47-4.68)
--- NOTE | 2022-05-26 15:24 | PC.NURSE ---
Pt keys and dog went home with friend. Pt wallet and coat placed in locked cabinet per pt request.
--- NOTE | 2022-05-26 15:30 | ED_ITS ---
HPI - Psych <Lane Marr PA-C - Last Filed: 05/26/22 20:37> General Chief Complaint: Psychiatric Symptoms Stated Complaint: Cipriano Time Seen by Provider: 05/26/22 13:54 Source: patient Mode of arrival: Ambulatory History of Present Illness HPI Narrative: 66-year-old female with past medical history hypothyroidism, bipolar 1 disorder presents to the ED seeking voluntary inpatient psychiatry care. Patient presented to the ED on 05/23/2022 with a friend for increasing cipriano, no organic causes identified, patient elected to go home and continue outpatient care. Patient returns to the ED today voluntarily, seeking inpatient admission for treatment of the bipolar disorder. Patient states that she has not slept in 3 days, feels like she is about not off, however wakes up. In the ED, patient is not able to coherently state why she came into the ED other than the fact that she was not able to sleep. Patient is not expressing any suicidal or homicidal thoughts. Patient does have notable flight of ideas. Patient is on lithium and levothyroxine, however it is unclear how compliant the patient is with these medications. Patient endorses that she is unclear why the colors of her pills keep changing and why doses keep changing. It is unclear if she is taking the medicines as prescribed. Patient unable to provide a detailed ROS due to her flight of ideas, however patient does not seem to be in any physical distress and not complaining of any pain or discomfort. Patient appears clean, well dressed, well groomed. Related Data Home Medications Medication Instructions Recorded Confirmed lithium carbonate 300 mg capsule 300 mg PO DAILY 05/26/22 05/26/22 Previous Rx's Medication Instructions Recorded levothyroxine 137 mcg tablet 137 mcg PO DAILY #30 tabs 04/23/22 Allergies Allergy/AdvReac Type Severity Reaction Status Date / Time No Known Drug Allergies Allergy Verified 05/26/22 13:33 Review of Systems <Lane Marr PA-C - Last Filed: 05/26/22 20:37> Review of Systems ROS Unobtainable: Unobtainable due to mental condition Patient History <Lane Marr PA-C - Last Filed: 05/26/22 20:37> Medical History Bipolar 1 disorder Bipolar 2 disorder Colon cancer screening declined Enlarged heart Hearing loss Hepatic steatosis History of bipolar disorder (~1976) Hypothyroidism (~1984) [place] use Mammogram declined Near sighted Osteoporosis screening declined Other skilled nursing (current) drug therapy Psoriasis Tinnitus Surgical History Anesthesia History of cholecystectomy (~1984) Status post surgery (03/26/09) Family History Father Asbestosis Mother History of heart disease Brother Cancer Grandmother History of heart disease Grandfather History of heart disease Grandmother Mental health problem Social History Smoking Status: Former smoker Smoking Status: Former smoker alcohol intake frequency: 3 or more drinks per day Substance Use Type: does not use Exam <Lane Marr PA-C - Last Filed: 05/26/22 20:37> Narrative Exam Narrative: Const General:?cooperative, healthy appearing and comfortable HENPA Head:?normal to inspection Ears:?hearing grossly normal bilaterally Nose:?external nose normal Face and sinus:?normal facial exam and sinuses nontender Mouth:?oral mucosae normal Throat:?posterior oropharynx normal Eyes General:?appearance normal, both eyes and all related structures Neck Neck:?normal visual inspection and no lymphadenopathy noted Resp Effort & Inspection:?normal respiratory effort Auscultation:?clear to auscultation bilaterally Cardio Rate:?regular rate Rhythm:?regular rhythm Neuro General:?patient alert, patient awake and patient oriented x3 Initial Vital Signs Initial Vital Signs: Vital Signs Temperature 98.2 F 05/26/22 13:33 Pulse Rate 64 05/26/22 13:33 Respiratory Rate 18 05/26/22 13:33 Blood Pressure 128/71 05/26/22 13:33 Pulse Oximetry 100 05/26/22 13:33 Oxygen Delivery Method 05/26/22 13:33 <Mary Valero MD - Last Filed: 05/27/22 02:03> Initial Vital Signs Initial Vital Signs: Vital Signs Temperature 98.2 F 05/26/22 13:33 Pulse Rate 64 05/26/22 13:33 Respiratory Rate 18 05/26/22 13:33 Blood Pressure 128/71 05/26/22 13:33 Pulse Oximetry 100 05/26/22 13:33 Oxygen Delivery Method 05/26/22 13:33 Course <Lane Marr PA-C - Last Filed: 05/26/22 20:37> Orders Ordered: ED Orders 05/26/22 17:44 COVID19 -Nasal RAPID/Pre-Proc Stat Discontinued Medications Haloperidol (Haloperidol 5 Mg/Ml Vial) 5 mg IV NOW ONE Stop: 05/26/22 17:27 Last Admin: 05/26/22 17:59 Dose: Not Given Documented By: AT Haloperidol (Haloperidol 5 Mg Tablet) 5 mg PO NOW ONE Stop: 05/26/22 17:56 Last Admin: 05/26/22 18:15 Dose: Not Given Documented By: AT [place] Carbonate ([place] 150 Mg Ir Capsule) 300 mg PO NOW ONE Stop: 05/26/22 18:15 Last Admin: 05/26/22 20:49 Dose: 300 mg Documented By: AT Lorazepam (Lorazepam 2 Mg/Ml Inj) 2 mg IV NOW ONE Stop: 05/26/22 17:27 Last Admin: 05/26/22 17:59 Dose: Not Given Documented By: AT Lorazepam (Lorazepam 0.5 Mg Tablet) 2 mg PO NOW ONE Stop: 05/26/22 17:56 Last Admin: 05/26/22 18:14 Dose: 2 mg Documented By: AT Vital Signs Vital signs: Vital Signs - 8 hr 05/26/22 13:33 Temperature 98.2 F Pulse Rate 64 Respiratory Rate 18 Blood Pressure 128/71 Pulse Oximetry 100 Oxygen Delivery Method Room Air <Mary Valero MD - Last Filed: 05/27/22 02:03> Orders Ordered: ED Orders 05/26/22 17:44 COVID19 -Nasal RAPID/Pre-Proc Stat Discontinued Medications Haloperidol (Haloperidol 5 Mg/Ml Vial) 5 mg IV NOW ONE Stop: 05/26/22 17:27 Last Admin: 05/26/22 17:59 Dose: Not Given Documented By: AT Haloperidol (Haloperidol 5 Mg Tablet) 5 mg PO NOW ONE Stop: 05/26/22 17:56 Last Admin: 05/26/22 18:15 Dose: Not Given Documented By: AT [place] Carbonate ([place] 150 Mg Ir Capsule) 300 mg PO NOW ONE Stop: 05/26/22 18:15 Last Admin: 05/26/22 20:49 Dose: 300 mg Documented By: AT Lorazepam (Lorazepam 2 Mg/Ml Inj) 2 mg IV NOW ONE Stop: 05/26/22 17:27 Last Admin: 05/26/22 17:59 Dose: Not Given Documented By: AT Lorazepam (Lorazepam 0.5 Mg Tablet) 2 mg PO NOW ONE Stop: 05/26/22 17:56 Last Admin: 05/26/22 18:14 Dose: 2 mg Documented By: AT Vital Signs Vital signs: Vital Signs - 8 hr 05/26/22 13:33 Temperature 98.2 F Pulse Rate 64 Respiratory Rate 18 Blood Pressure 128/71 Pulse Oximetry 100 Oxygen Delivery Method Room Air MDM - Psych <Lane Marr PA-C - Last Filed: 05/26/22 20:37> Lab Data Result diagrams: 05/26/22 14:15 05/26/22 14:15 Labs: Lab Results 05/26/22 05/26/22 05/26/22 Range/Units 14:15 14:15 14:15 WBC 7.6 (4.5-11.0) X10^3/uL RBC 4.23 (4.0-5.2) X10^6/uL Hgb 12.9 (12.0-16.0) g/dL Hct 38.8 (36-46) % MCV 91.5 (80-100) fL MCH 30.5 (26-34) PG MCHC 33.3 (30-36) % RDW 13.8 (11.6-14.8) % Plt Count 292 (150-400) X10^3/uL Neut % (Auto) 60.6 (50-75) % Lymph % (Auto) 24.6 L (25-40) % [place] % (Auto) 7.0 (3-14) % Eos % (Auto) 7.0 H (2-4) % Baso % (Auto) 0.8 (0-2) % Neut # (Auto) 4600 (4549-3676) /uL Lymph # (Auto) 1900 (6242-6575) /uL [place] # (Auto) 500 (0-900) /uL Eos # (Auto) 500 H (0-450) /uL Baso # (Auto) 100 (0-100) /uL Sodium 142 (137-145) mmol/L Potassium 4.1 (3.4-5.1) mmol/L Chloride 109 H (98-107) mmol/L Carbon Dioxide 26 (22-32) mmol/L BUN 17 (7-17) mg/dL Creatinine 0.79 (0.52-1.04) mg/dL Estimated GFR > 60 (>60) mL/min BUN/Creatinine Ratio 21.5 (6-22) Glucose 118 H (80-110) mg/dL Calcium 9.7 (8.4-10.2) mg/dL Total Bilirubin 0.5 (0.2-1.3) mg/dL AST 33 (14-36) IU/L ALT 27 (<35) IU/L Alkaline Phosphatase 75 (38-126) U/L Total Protein 7.5 (6.3-8.2) g/dL TSH 0.506 D (0.47-4.68) uIU/mL Free T4 1.46 (0.78-2.19) ng/dL Salicylates < 1.0 (<20) mg/dL U Opiates 300ng/mL cut (Negative) Ur Oxycodone Screen (Negative) Urine Methadone Screen (Negative) Acetaminophen < 10 (10-30) ug/mL Ur Barbiturates Screen (Negative) U Tricyclic Antidepress (Negative) Ur Phencyclidine Scrn (Negative) Ur Amphetamines Screen (Negative) U Methamphetamines Scrn (Negative) Ur MDMA Scrn (Ecstasy) (Negative) U Benzodiazepines Scrn (Negative) [place] 0.5 L (0.6-1.2) mmol/L Urine Cocaine Screen (Negative) U Marijuana (THC) Screen (Negative) Ethyl Alcohol < 10 ( - 10) mg/dL SARS-CoV-2 (PCR) (Negative) 05/26/22 05/26/22 Range/Units 16:11 17:44 WBC (4.5-11.0) X10^3/uL RBC (4.0-5.2) X10^6/uL Hgb (12.0-16.0) g/dL Hct (36-46) % MCV (80-100) fL MCH (26-34) PG MCHC (30-36) % RDW (11.6-14.8) % Plt Count (150-400) X10^3/uL Neut % (Auto) (50-75) % Lymph % (Auto) (25-40) % [place] % (Auto) (3-14) % Eos % (Auto) (2-4) % Baso % (Auto) (0-2) % Neut # (Auto) (2247-6234) /uL Lymph # (Auto) (2923-4941) /uL [place] # (Auto) (0-900) /uL Eos # (Auto) (0-450) /uL Baso # (Auto) (0-100) /uL Sodium (137-145) mmol/L Potassium (3.4-5.1) mmol/L Chloride (98-107) mmol/L Carbon Dioxide (22-32) mmol/L BUN (7-17) mg/dL Creatinine (0.52-1.04) mg/dL Estimated GFR (>60) mL/min BUN/Creatinine Ratio (6-22) Glucose (80-110) mg/dL Calcium (8.4-10.2) mg/dL Total Bilirubin (0.2-1.3) mg/dL AST (14-36) IU/L ALT (<35) IU/L Alkaline Phosphatase (38-126) U/L Total Protein (6.3-8.2) g/dL TSH (0.47-4.68) uIU/mL Free T4 (0.78-2.19) ng/dL Salicylates (<20) mg/dL U Opiates 300ng/mL cut Negative (Negative) Ur Oxycodone Screen Negative (Negative) Urine Methadone Screen Negative (Negative) Acetaminophen (10-30) ug/mL Ur Barbiturates Screen Negative (Negative) U Tricyclic Antidepress Negative (Negative) Ur Phencyclidine Scrn Negative (Negative) Ur Amphetamines Screen Negative (Negative) U Methamphetamines Scrn Negative (Negative) Ur MDMA Scrn (Ecstasy) Negative (Negative) U Benzodiazepines Scrn Negative (Negative) [place] (0.6-1.2) mmol/L Urine Cocaine Screen Negative (Negative) U Marijuana (THC) Screen Negative (Negative) Ethyl Alcohol ( - 10) mg/dL SARS-CoV-2 (PCR) Negative (Negative) Urine Dip Bedside Urine Glucose Negative Bedside Urine Bilirubin - Negative Bedside Urine Ketone - Negative Urine Specific [place] 1.015 Bedside Urine Occult Blood - Negative Bedside Urine pH 6.0 Bedside Urine Protein - Negative Bedside Urine Urobilinogen - Negative Bedside Urine Nitrite - Negative Bedside Urine Leukocytes - Negative Esterase MDM Narrative Medical decision making narrative: 66-year-old female with past medical history hypothyroidism, bipolar 1 disorder presents to the ED seeking voluntary inpatient psychiatry care. Concern for cipriano associated with bipolar disorder versus other psychiatric illness versus other. Will rule out organic causes, consult with social work. Workup with no acute findings other than a sub therapeutic level of lithium, which is co nsistent with patient's history of noncompliance. Social work is working to secure a inpatient psych admission. Patient was given her daily dose of 3000 mg of lithium carbonate. Patient also given Haldol and Ativan for symptoms, following which patient was able to sleep for a few hours. Social work has consulted [facility], [facility], [facility]. It is likely that [facility] and the others might have beds tomorrow after 12 noon. Patient continues to be calm in the ED. Patient is signed out to Dr. Mary Rodriguez. <Mary Valero MD - Last Filed: 05/27/22 02:03> Lab Data Labs: Lab Results 05/26/22 05/26/22 05/26/22 Range/Units 14:15 14:15 14:15 WBC 7.6 (4.5-11.0) X10^3/uL RBC 4.23 (4.0-5.2) X10^6/uL Hgb 12.9 (12.0-16.0) g/dL Hct 38.8 (36-46) % MCV 91.5 (80-100) fL MCH 30.5 (26-34) PG MCHC 33.3 (30-36) % RDW 13.8 (11.6-14.8) % Plt Count 292 (150-400) X10^3/uL Neut % (Auto) 60.6 (50-75) % Lymph % (Auto) 24.6 L (25-40) % [place] % (Auto) 7.0 (3-14) % Eos % (Auto) 7.0 H (2-4) % Baso % (Auto) 0.8 (0-2) % Neut # (Auto) 4600 (8955-6169) /uL Lymph # (Auto) 1900 (9620-5753) /uL [place] # (Auto) 500 (0-900) /uL Eos # (Auto) 500 H (0-450) /uL Baso # (Auto) 100 (0-100) /uL Sodium 142 (137-145) mmol/L Potassium 4.1 (3.4-5.1) mmol/L Chloride 109 H (98-107) mmol/L Carbon Dioxide 26 (22-32) mmol/L BUN 17 (7-17) mg/dL Creatinine 0.79 (0.52-1.04) mg/dL Estimated GFR > 60 (>60) mL/min BUN/Creatinine Ratio 21.5 (6-22) Glucose 118 H (80-110) mg/dL Calcium 9.7 (8.4-10.2) mg/dL Total Bilirubin 0.5 (0.2-1.3) mg/dL AST 33 (14-36) IU/L ALT 27 (<35) IU/L Alkaline Phosphatase 75 (38-126) U/L Total Protein 7.5 (6.3-8.2) g/dL TSH 0.506 D (0.47-4.68) uIU/mL Free T4 1.46 (0.78-2.19) ng/dL Salicylates < 1.0 (<20) mg/dL U Opiates 300ng/mL cut (Negative) Ur Oxycodone Screen (Negative) Urine Methadone Screen (Negative) Acetaminophen < 10 (10-30) ug/mL Ur Barbiturates Screen (Negative) U Tricyclic Antidepress (Negative) Ur Phencyclidine Scrn (Negative) Ur Amphetamines Screen (Negative) U Methamphetamines Scrn (Negative) Ur MDMA Scrn (Ecstasy) (Negative) U Benzodiazepines Scrn (Negative) [place] 0.5 L (0.6-1.2) mmol/L Urine Cocaine Screen (Negative) U Marijuana (THC) Screen (Negative) Ethyl Alcohol < 10 ( - 10) mg/dL SARS-CoV-2 (PCR) (Negative) 05/26/22 05/26/22 Range/Units 16:11 17:44 WBC (4.5-11.0) X10^3/uL RBC (4.0-5.2) X10^6/uL Hgb (12.0-16.0) g/dL Hct (36-46) % MCV (80-100) fL MCH (26-34) PG MCHC (30-36) % RDW (11.6-14.8) % Plt Count (150-400) X10^3/uL Neut % (Auto) (50-75) % Lymph % (Auto) (25-40) % [place] % (Auto) (3-14) % Eos % (Auto) (2-4) % Baso % (Auto) (0-2) % Neut # (Auto) (8938-8811) /uL Lymph # (Auto) (5807-5402) /uL [place] # (Auto) (0-900) /uL Eos # (Auto) (0-450) /uL Baso # (Auto) (0-100) /uL Sodium (137-145) mmol/L Potassium (3.4-5.1) mmol/L Chloride (98-107) mmol/L Carbon Dioxide (22-32) mmol/L BUN (7-17) mg/dL Creatinine (0.52-1.04) mg/dL Estimated GFR (>60) mL/min BUN/Creatinine Ratio (6-22) Glucose (80-110) mg/dL Calcium (8.4-10.2) mg/dL Total Bilirubin (0.2-1.3) mg/dL AST (14-36) IU/L ALT (<35) IU/L Alkaline Phosphatase (38-126) U/L Total Protein (6.3-8.2) g/dL TSH (0.47-4.68) uIU/mL Free T4 (0.78-2.19) ng/dL Salicylates (<20) mg/dL U Opiates 300ng/mL cut Negative (Negative) Ur Oxycodone Screen Negative (Negative) Urine Methadone Screen Negative (Negative) Acetaminophen (10-30) ug/mL Ur Barbiturates Screen Negative (Negative) U Tricyclic Antidepress Negative (Negative) Ur Phencyclidine Scrn Negative (Negative) Ur Amphetamines Screen Negative (Negative) U Methamphetamines Scrn Negative (Negative) Ur MDMA Scrn (Ecstasy) Negative (Negative) U Benzodiazepines Scrn Negative (Negative) [place] (0.6-1.2) mmol/L Urine Cocaine Screen Negative (Negative) U Marijuana (THC) Screen Negative (Negative) Ethyl Alcohol ( - 10) mg/dL SARS-CoV-2 (PCR) Negative (Negative) Urine Dip Bedside Urine Glucose Negative Bedside Urine Bilirubin - Negative Bedside Urine Ketone - Negative Urine Specific [place] 1.015 Bedside Urine Occult Blood - Negative Bedside Urine pH 6.0 Bedside Urine Protein - Negative Bedside Urine Urobilinogen - Negative Bedside Urine Nitrite - Negative Bedside Urine Leukocytes - Negative Esterase MDM Narrative Medical decision making narrative: 66-year-old female with past medical history hypothyroidism, bipolar 1 disorder presents to the ED seeking voluntary inpatient psychiatry care. Concern for cipriano associated with bipolar disorder versus other psychiatric illness versus other. Will rule out organic causes, consult with social work. Workup with no acute findings other than a sub therapeutic level of lithium, which is consistent with patient's history of noncompliance. Social work is working to secure a inpatient psych admission. Patient was given her daily dose of 3000 mg of lithium carbonate. Patient also given Haldol and Ativan for symptoms, following which patient was able to sleep for a few hours. Social work has consulted [facility] S[facility], [facility], [facility]. It is likely that [facility] and the others might have beds tomorrow after 12 noon. Patient continues to be calm in the ED. Patient is signed out to Dr. Mary Rodriguez. Patient is accepted as a voluntary admit to [facility] in [place] and is transferred via ambulance. Discharge Plan Departure Patient Disposition: Xfer Psychiatric Hosp Clinical Impression: Bipolar I disorder with cipriano Prescriptions: No Action levothyroxine 137 mcg tablet 137 mcg PO DAILY Qty: 30 11RF lithium carbonate 300 mg capsule 300 mg PO DAILY Referrals: Yash Chavarria DO [Primary Care Provider] -
[2022-05-26 16:35] LABS: UR Morphine/Opiate cutoff 300 Negative (Negative); Ur Creatinine Normal (Normal); Ur Specific Gravity Normal (Normal); Urine Amphetamines Negative (Negative); Urine Barbiturates Negative (Negative); Urine Benzodiazepines Negative (Negative); Urine Cocaine Negative (Negative); Urine MDMA Negative (Negative); Urine Methadone Negative (Negative); Urine Methamphetamines Negative (Negative); Urine Oxycodone Negative (Negative); Urine Phencyclidine Negative (Negative); Urine Tetrahydrocannabinol Negative (Negative); Urine Tricyclic Antidepressant Negative (Negative); Urine pH Normal (Normal)
[2022-05-26] MEDS: LORazepam 0.5 MG TABLET 2 MG PO (18:14)
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
[2022-05-26 18:20] LABS: COVID19 -Nasal RAPID Negative (Negative)
--- NOTE | 2022-05-26 19:49 | CM.SWNOTE ---
CAUL PULLER Note CAUL PULLER calls [facility] for bed census. CAUL PULLER calls [facility] intake, it is reported that they have no beds today but will likely have 1-2 d/cs tomorrow and recommends calling back tomorrow AM after 10 am. CAUL PULLER calls [facility] intake, it is reported that they have no beds today but will likely have beds tomorrow after 11 am, CAUL PULLER faxes clinicals for review. CAUL PULLER calls [facility], it is reported that they will likely have beds tomorrow, CAUL PULLER faxes clinicals for review. CAUL PULLER calls [facility], it is reported they have no beds today but will likely have beds tomorrow after 12 noon. CAUL PULLER faxes clinicals for review. CAUL PULLER to inform ALLIED HEALTH TEACHER to f/u with facilities tomorrow morning to f/u with referral. Plan: Continue to seek voluntary inpatient bed. Melany Neal, SR. MANAGER MARKETING
[2022-05-26] MEDS: LITHIUM 150 MG IR CAPSULE 300 MG PO (20:49)
--- NOTE | 2022-05-26 21:25 | PC.NURSE ---
Patient ambulatory independently with steady gait around room. Switching from stretcher to chair, adjusting bedside table frequently. Water and milk at bedside. Pt breathing even and unlabored with no acute distress noted. Skin pink, warm, and dry.
--- NOTE | 2022-05-26 22:49 | PC.NURSE ---
Updated pt on plan of care and [facility] acceptance, pt agrees to plan.
--- NOTE | 2022-05-26 23:21 | PC.NURSE ---
Report called to Adry at [facility] [employer] #[phone]
[2022-05-30 15:46] LABS: Albumin Globulin Ratio 1.1 (1.0-2.8); Globulin 3.5 g/dL (1.7-4.1); HEMOLYSIS 20 (0-50)
== END 2022-05-27 01:30 ==
PROVIDERS: Emergency Medicine; Emergency Provider Student in an Organized Health Care Education/Training Program; Family Provider Family Medicine; PCP Family Medicine
DX: F31.10 Bipolar disorder, current episode manic without psychotic features, unspecified (principal); Z20.822 Contact with and (suspected) exposure to COVID-19
CPT/HCPCS: 36415; 80053; 80178; 80305; 80320; 80329; 81003; 84439; 84443; 85025; 87635; 93005; 99284; C9803; G0480

== ENCOUNTER → 2023-06-22 07:31 | Outpatient (CLI) | payer MEDICARE, SELFPAY ==
--- NOTE | 2023-06-22 07:33 | DI.RAD.S_ITS ---
PROCEDURE: XR SHOULDER LT MIN 2V INDICATIONS: left shoulder pain TECHNIQUE: 3 views of the shoulder were acquired. COMPARISON: [facility], , SHOULDER MINIMUM 2VIEW RIGHT, 04/05/2013, 7:51. FINDINGS: Bones: No fractures or dislocations. Healed fracture deformity of the left midclavicle. Normal glenohumeral alignment. Acromioclavicular and coracoclavicular intervals are maintained. No suspicious bony lesions. Visualized ribs appear intact. Soft tissues: No suspicious soft tissue calcifications. IMPRESSION: 1. No acute bony abnormality. 2. Healed fracture deformity of the left midclavicle. Dictated by: Hector Henry M.D. on 06/22/2023 at 13:05 Approved by: Hector Henry M.D. on 06/22/2023 at 13:09
--- NOTE | 2023-06-22 07:33 | DI.RAD.S_ITS ---
PROCEDURE: XR SHOULDER RT MIN 2V INDICATIONS: right shoulder pain TECHNIQUE: 3 views of the shoulder were acquired. COMPARISON: [facility], , SHOULDER MINIMUM 2VIEW RIGHT, 04/05/2013, 7:51. FINDINGS: Bones: No fractures or dislocations. Normal glenohumeral alignment. Mild acromioclavicular joint space narrowing. Coracoclavicular interval is maintained. No suspicious bony lesions. Visualized ribs appear intact. Soft tissues: No suspicious soft tissue calcifications. Visualized lung is clear. IMPRESSION: 1. No acute bony abnormality. 2. Mild acromioclavicular joint osteoarthritis. Dictated by: Hector Henry M.D. on 06/22/2023 at 10:58 Approved by: Hector Henry M.D. on 06/22/2023 at 12:34
[2023-06-22 08:06] LABS: Hematocrit 41.2 % (36-46); Hemoglobin 14.2 g/dL (12.0-16.0); Mean Corpuscular HGB Conc 34.4 % (30-36); Mean Corpuscular Hemoglobin 30.8 PG (26-34); Mean Corpuscular Volume 89.6 fL (80-100); Platelet Count 266 X10^3/uL (150-400); Red Cell Distribution Width 14.1 % (11.6-14.8); White Blood Cell Count 6.2 X10^3/uL (4.5-11.0)
[2023-06-22 08:26] LABS: Lithium 0.9 mmol/L (0.6-1.2)
[2023-06-22 08:30] LABS: Cholesterol 188 mg/dL (140-199); HDL Cholesterol 43 mg/dL (40-60); LDL Cholesterol Calculated 111 mg/dL (<100); Triglycerides 172 mg/dL (35-150)
[2023-06-22 08:32] LABS: Alanine Aminotransferase 27 IU/L (<35); Albumin Globulin Ratio 1.3 (1.0-2.8); Alkaline Phosphatase 91 U/L (38-126); Aspartate Aminotransferase 26 IU/L (14-36); Bilirubin Total 0.6 mg/dL (0.2-1.3); Blood Urea Nitrogen 16 mg/dL (7-17); Calcium 10.1 mg/dL (8.4-10.2); Carbon Dioxide 25 mmol/L (22-32); Chloride 109 mmol/L (98-107); Estimated Glomerular Filt Rate > 60 mL/min (>60); Glucose 113 mg/dL (80-110); HEMOLYSIS < 15 (0-50); Potassium 4.5 mmol/L (3.4-5.1); Sodium 140 mmol/L (137-145)
[2023-06-22 08:47] LABS: Free T3, Triiodothyronine Free 3.96 pg/mL (2.77-5.27); Free T4, Direct Thyroxine 1.42 ng/dL (0.78-2.19)
[2023-06-22 08:55] LABS: Neutrophils Absolute Manual 3782 /uL (3000-5900); Platelet Estimate Adequate on smear; RBC Morphology Normal Morphology; Total Cells Counted 100
[2023-06-22 09:00] LABS: Thyroid Stimulating Hormone 0.275 uIU/mL (0.47-4.68)
[2023-06-23 03:46] LABS: x Labcorp Estim. Avg Glu (eAG) 108 mg/dL (.); x Labcorp Hemoglobin A1c 5.4 % (4.8-5.6)
== END ==
PROVIDERS: Family Medicine; Family Provider Family Medicine; PCP Nurse Practitioner; Referring Provider Nurse Practitioner; Visit Provider Nurse Practitioner
DX: M25.511 Pain in right shoulder; R73.01 Impaired fasting glucose; M25.512 Pain in left shoulder; Z79.899 Other long term (current) drug therapy; E78.00 Pure hypercholesterolemia, unspecified; F31.9 Bipolar disorder, unspecified; H81.10 Benign paroxysmal vertigo, unspecified ear; E03.9 Hypothyroidism, unspecified; E06.3 Autoimmune thyroiditis; M19.011 Primary osteoarthritis, right shoulder; Z87.81 Personal history of (healed) traumatic fracture
CPT/HCPCS: 36415; 73030; 80053; 80061; 80178; 83036; 84439; 84443; 84481; 85025

== ENCOUNTER → 2023-09-22 07:27 | Outpatient (CLI) | payer MEDICARE, SELFPAY ==
[2023-09-22 09:28] LABS: Thyroid Stimulating Hormone 0.385 uIU/mL (0.47-4.68)
== END ==
PROVIDERS: Family Provider Family Medicine; PCP Nurse Practitioner; Referring Provider Nurse Practitioner; Visit Provider Nurse Practitioner
DX: E06.3 Autoimmune thyroiditis (principal); E03.8 Other specified hypothyroidism; L98.9 Disorder of the skin and subcutaneous tissue, unspecified; Z79.899 Other long term (current) drug therapy
CPT/HCPCS: 36415; 84443; 87070; 87075; 87205

== ENCOUNTER → 2023-12-15 12:11 | Outpatient (CLI) | payer MEDICARE, SELFPAY | LOC: LAB 12:12 | PROVIDERS: Family Provider Family Medicine; PCP Nurse Practitioner; Referring Provider Nurse Practitioner; Visit Provider Nurse Practitioner | DX: E06.3 Autoimmune thyroiditis (principal) | CPT/HCPCS: 36415; 84443 ==

== ENCOUNTER → 2024-04-18 08:25 | Outpatient (CLI) | payer MEDICARE, SELFPAY ==
--- NOTE | 2024-04-18 08:28 | DI.RAD.S_ITS ---
PROCEDURE: XR DEXA AXIAL SKELETON INDICATIONS: ROUTINE SCRN/SCRN OSTEOPOROSIS,HYPERCHOLESTEROLEMI COMPARISON: [facility], , XR DEXA AXIAL SKELETON, 05/17/2021, 12:00. FINDINGS: Lumbar Spine: Bone mineral density 0.781 g/cm2, T score -2.4. There is interval 3.3% decrease in total lumbar spine bone mineral density. Left Hip: Bone mineral density 0.691 g/cm2, T score -1.4. There is interval 3.5% increase in total left hip bone mineral density. Left Femoral Neck: Bone mineral density 0.951 g/cm2, T score 0.1. There is interval 4.5% decrease in left femoral neck bone mineral density. Right Hip: Bone mineral density 0.676 g/cm2, T score -1.6. There is interval 1.5% decrease in total right hip bone mineral density. Right Femoral Neck: Bone mineral density 0.882 g/cm2, T score -0.5. There is interval 3.5% decrease in right femoral neck bone mineral density. Fracture Risk Calculation (when applicable): 10-year fracture risk of a major osteoporotic fracture 9.3 percent and of a hip fracture 1.3 percent. (T score greater or equal to -1.0 to: NORMAL) (T score from -1.1 to -2.4: OSTEOPENIA) (T score less than or equal to -2.5: OSTEOPOROSIS) IMPRESSION: Osteopenia with increased 10 year fracture risk. Follow-up guidelines as follows: Osteoporosis: Consider a repeat DEXA and Vertebral Fracture Assessment (VFA) exam in 2 years or sooner if medically necessary, to reassess this patient's status. Osteopenia: Consider a repeat DEXA in 2-3 years to reassess this patient's status, or if there is a new clinical indication. Normal: Consider a repeat DEXA in 5 years or sooner, or if there is a new clinical indication. All treatment decisions require clinical judgment and consideration of individual patient factors, including patient preferences, comorbidities, previous drug use, risk factors not captured in the FRAX model (e.g., frailty, falls, vitamin D deficiency, increased bone turnover, interval significant decline in bone density ) and possible under- or over-estimation of fracture risk by FRAX. In addition, the NOF Guide recommends that FDA-approved medical therapies be considered in postmenopausal women and men age >= 50 years with a: * Hip or vertebral (clinical or morphometric) fracture * T-score of <=-2.5 at the spine or hip * Ten-year fracture probability by FRAX of >= 3% for hip fracture or >=20% for major osteoporotic fracture. People with diagnosed cases of osteoporosis or at high risk for fracture should have regular bone mineral density tests. For patients eligible for Medicare, routine testing is allowed once every 2 years. The testing frequency can be increased to one year for patients who have rapidly progressing disease, those who are receiving or discontinuing medical therapy to restore bone mass, or have additional risk factors. Dictated by: Brian Serrato M.D. on 04/18/2024 at 18:43 Approved by: Brian Serrato M.D. on 04/18/2024 at 18:44
--- NOTE | 2024-04-18 08:28 | DI.MG.S_ITS ---
BILATERAL DIGITAL SCREENING MAMMOGRAM 3D/2D WITH CAD: 04/18/2024 Comparison is made to exam dated: 04/11/2022 mammogram - [facility]. The breasts are almost entirely fatty (category a/<25% glandular tissue). Current study was also evaluated with a Computer Aided Detection (CAD) system. No significant masses, calcifications, or other findings are seen in either breast. There has been no significant interval change. IMPRESSION: NEGATIVE There is no mammographic evidence of malignancy. A 1 year screening mammogram is recommended. Based on the Tyrer Cuzick model (a risk assessment model) the patient's lifetime risk is 3.9% and her 10 year risk is 2.3%. According to the ACR, ACS, and NCCN guidelines, an annual breast MRI exam along with mammogram is recommended if the patient's lifetime risk is 20% or greater. This exam was interpreted at Station ID: [id number]. NOTE: For mammograms, a report in lay terms will be sent to the patient. Approximately 15% of breast malignancies will not be visualized mammographically. In the management of a palpable breast mass, a negative mammogram must not discourage biopsy of a clinically suspicious lesion. Electronically Signed By: Zan sharma/tasha:04/18/2024 16:53:26 letter sent: Normal Exam ACR BI-RADS Category 1: Negative
[2024-04-18 10:00] LABS: Add Manual Diff / Slide Review NO; Basophils Absolute Auto 100 /uL (0-100); Eosinophils Absolute Auto 700 /uL (0-450); Eosinophils Percent Auto 10.8 % (2-4); Hematocrit 42.8 % (36-46); Hemoglobin 14.2 g/dL (12.0-16.0); Lymphocytes Absolute Auto 1400 /uL (1100-4500); Lymphocytes Percent Auto 21.3 % (25-40); Mean Corpuscular HGB Conc 33.1 % (30-36); Mean Corpuscular Hemoglobin 30.4 PG (26-34); Mean Corpuscular Volume 91.9 fL (80-100); Monocytes Absolute Auto 300 /uL (0-900); Monocytes Percent Auto 5.3 % (3-14); Neutrophils Absolute Auto 4000 /uL (1500-7000); Neutrophils Percent Auto 61.6 % (50-75); Platelet Count 296 X10^3/uL (150-400); Red Blood Cell Count 4.65 X10^6/uL (4.0-5.2); White Blood Cell Count 6.5 X10^3/uL (4.5-11.0)
[2024-04-18 10:19] LABS: Alanine Aminotransferase 24 IU/L (<35); Albumin 3.9 g/dL (3.5-5.0); Albumin Globulin Ratio 1.3 (1.0-2.8); Alkaline Phosphatase 89 U/L (38-126); Aspartate Aminotransferase 26 IU/L (14-36); BUN Creatinine Ratio 17.2 (6-22); Bilirubin Total 0.5 mg/dL (0.2-1.3); Blood Urea Nitrogen 16 mg/dL (7-17); Calcium 10.3 mg/dL (8.4-10.2); Carbon Dioxide 23 mmol/L (22-32); Chloride 110 mmol/L (98-107); Cholesterol 188 mg/dL (140-199); Estimated Glomerular Filt Rate > 60 mL/min (>60); Glucose 106 mg/dL (80-110); HDL Cholesterol 45 mg/dL (40-60); HEMOLYSIS < 15 (0-50); Iron 88 ug/dL (37-170); LDL Cholesterol Calculated 111 mg/dL (<100); Lithium 0.9 mmol/L (0.6-1.2); Potassium 4.7 mmol/L (3.4-5.1); Sodium 137 mmol/L (137-145); Total Protein 6.9 g/dL (6.3-8.2); Triglycerides 160 mg/dL (35-150)
[2024-04-18 10:30] LABS: Hemoglobin A1C% w Est Avg Glu 5.1 % (4.0-6.0)
[2024-04-18 10:31] LABS: Percent Iron Saturation 29 % (15-50); Total Iron Binding Capacity 301 ug/dL (265-497); Transferrin 269 mg/dL (206-381)
[2024-04-18 10:51] LABS: Thyroid Stimulating Hormone 2.39 uIU/mL (0.47-4.68)
[2024-04-18 10:55] LABS: Ferritin 80 ng/mL (11-264)
== END ==
LOC: RAD 08:26
PROVIDERS: Family Provider Family Medicine; PCP Family Medicine; Referring Provider Family Medicine; Visit Provider Family Medicine
DX: Z12.31 Encounter for screening mammogram for malignant neoplasm of breast (principal); Z13.820 Encounter for screening for osteoporosis; M81.0 Age-related osteoporosis without current pathological fracture; K76.0 Fatty (change of) liver, not elsewhere classified; Z13.1 Encounter for screening for diabetes mellitus; R92.313 Mammographic fatty tissue density, bilateral breasts; E03.8 Other specified hypothyroidism; Z13.220 Encounter for screening for lipoid disorders; Z12.11 Encounter for screening for malignant neoplasm of colon; E06.3 Autoimmune thyroiditis; R53.83 Other fatigue; F31.9 Bipolar disorder, unspecified; Z79.899 Other long term (current) drug therapy
CPT/HCPCS: 36415; 77063; 77067; 77080; 80053; 80061; 80178; 82728; 83036; 83540; 83550; 84443; 85025

== ENCOUNTER → 2025-01-20 07:34 | Outpatient (CLI) | payer MEDICARE, SELFPAY ==
[2025-01-20 08:41] LABS: Add Manual Diff / Slide Review NO; Hematocrit 43.1 % (36-46); Hemoglobin 14.4 g/dL (12.0-16.0); Lymphocytes Absolute Auto 1700 /uL (1100-4500); Mean Corpuscular HGB Conc 33.3 % (30-36); Mean Corpuscular Hemoglobin 30.5 PG (26-34); Mean Corpuscular Volume 91.5 fL (80-100); Platelet Count 274 X10^3/uL (150-400)
[2025-01-20 08:49] LABS: Hemoglobin A1C% w Est Avg Glu 5.5 % (4.0-6.0)
[2025-01-20 09:08] LABS: Alanine Aminotransferase 21 IU/L (<35); Albumin 4.1 g/dL (3.5-5.0); Albumin Globulin Ratio 1.3 (1.0-2.8); Alkaline Phosphatase 90 U/L (38-126); Blood Urea Nitrogen 15 mg/dL (7-17); Calcium 10.3 mg/dL (8.4-10.2); Carbon Dioxide 26 mmol/L (22-32); Chloride 108 mmol/L (98-107); Estimated Glomerular Filt Rate > 60 mL/min (>60); Globulin 3.1 g/dL (1.7-4.1); Glucose 105 mg/dL (70-99); HEMOLYSIS < 15 (0-50); Potassium 4.9 mmol/L (3.4-5.1); Sodium 140 mmol/L (137-145); Total Protein 7.2 g/dL (6.3-8.2)
[2025-01-20 09:44] LABS: TSH w/ Reflex to FT4 4.59 uIU/mL (0.47-4.68)
[2025-01-20 10:03] LABS: Vitamin B12 328 pg/mL (239-931)
== END ==
PROVIDERS: PCP Family Medicine; Referring Provider Family Medicine; Visit Provider Family Medicine
DX: E03.8 Other specified hypothyroidism (principal); Z13.1 Encounter for screening for diabetes mellitus; E06.3 Autoimmune thyroiditis; R53.83 Other fatigue; R25.2 Cramp and spasm
CPT/HCPCS: 36415; 80053; 82607; 83036; 84443; 85025